=== PATIENT | female | born 1965 | race African-American/Black ===

== ENCOUNTER 2021-10-09 18:28 | Emergency (ER) | payer SELFPAY | END 2021-10-09 23:15 | disposition home or self-care (01) | LOC: CSHERS 18:28 | DX: R10.13 Epigastric pain (principal); R11.2 Nausea with vomiting, unspecified; K21.9 Gastro-esophageal reflux disease without esophagitis; E78.00 Pure hypercholesterolemia, unspecified | CPT/HCPCS: 76705 ==

== ENCOUNTER 2021-10-10 23:01 | Inpatient (IN) | payer SELFPAY ==
[2021-10-11 00:19] LABS: #Eosinphils 0.1 10x3/uL (0.0-0.5); #Monocytes 0.5 10x3/uL (0.0-1.1); #Neutrophils 3.8 10x3/uL (1.5-8.4); %Basophils 0.3 % (0.0-2.0); %Eosinophils 1.1 % (0.0-6.0); %Lymphocytes 29.5 % (18.0-47.0); %Monocytes 8.7 % (0.0-10.0); %Neutrophils 60.2 % (40.0-75.0); Hemoglobin 12.8 g/dL (12.0-15.5); Mean Corpuscular HGB CONC 34.7 g/dL (32.0-36.0); Mean Corpuscular Hemoglobin 29.8 pg (27.0-33.0); Mean Corpuscular Volume 85.8 fl (81.6-98.3); Mean Platelet Volume 9.1 fl (7.4-10.4); Platelet Count 357 10x3/uL (150-450); RBC Distribution Width 11.8 % (11.5-14.5); White Blood Cell (WBC) Count 6.2 10x3/uL (3.5-10.5)
[2021-10-11] MEDS ORDERED: Famotidine/PF 20 mg/2ml Vial ONE (00:24)
[2021-10-11] MEDS ORDERED: Pantoprazole 40 MG VIAL ONE ×2 (00:24→07:30)
[2021-10-11 00:28] LABS: ALT (SGPT) 8 U/L (8-55); AST (SGOT) 15 U/L (5-34); Albumin 3.9 g/dL (3.5-5.0); Alkaline Phosphatase 68 U/L (40-110); Anion Gap 14 mmol/L (10-20); BUN (Urea Nitrogen) 17 mg/dL (9.8-20.1); Bilirubin, Total 0.5 mg/dL (0.2-1.2); Calc. Creatinine Clearance 0 mL/min (70-130); Calcium 8.7 mg/dL (7.8-10.44); Carbon Dioxide 25 mmol/L (22-29); Chloride 98 mmol/L (98-107); Globulin 2.2 g/dL (2.4-3.5); Glucose 122 mg/dL (70-105); Lipase 35 U/L (8-78); Potassium 3.4 mmol/L (3.5-5.1); Protein, Total 6.1 g/dL (6.0-8.3); Sodium 134 mmol/L (136-145)
[2021-10-11] MEDS ORDERED: Mag-Al Plus 1200 MG/1200 MG/120 MG/30 ML UDCUP ONE (00:53)
[2021-10-11 01:50] LABS: Bilirubin Neg (Negative); Blood, Urine Negative (Negative); Clarity Clear (Clear); Glucose, Urine (Dipstick) >=1000 mg/dL (Negative); Ketone, Urine 5 mg/dL (Negative); Leukocyte 100 (Negative); Nitrite Negative (Negative); Protein, Urine (Dipstick) Negative (Neg-Trace); Urobilinogen Normal mg/dL (Less than 2)
[2021-10-11 01:57] LABS: Bacteria/HPF 1+ HPF (None Seen); RBC/HPF 0-3 HPF (0-3); Squamous Epithelial 0-3 HPF (0-3); WBC/HPF 0-3 HPF (0-3)
[2021-10-11] MEDS ORDERED: Nitroglycerin 0.4 MG TAB (25 Tab Bottle) SL PRN (04:03)
[2021-10-11] MEDS ORDERED: 1/2 NS w/KCL 20 mEq 1,000 ML IV SCH (04:30)
[2021-10-11] MEDS ORDERED: NS 0.9% w/ 20 MEQ KCL 1,000 ML ONE (04:37)
[2021-10-11] MEDS ORDERED: Aspirin Chewable 81 MG TAB PO SCH (04:45)
[2021-10-11] MEDS ORDERED: Aspirin 325 MG TAB ONE (04:48)
[2021-10-11] MEDS: Mag-Al 1200 mg/1200 mg/30 ML UDCUP PO SCH ×4 (04:55→23:44)
[2021-10-11] MEDS: NS 0.9% w/ 20 MEQ KCL 1,000 ML/1,000 ML BAG IV SCH ×2 (04:55→14:57)
[2021-10-11] MEDS: Nitroglycerin 2% Ointment 1 INCH/1 GM Packet TOP SCH ×3 (04:55→21:19)
[2021-10-11 05:15] LABS: #Eosinphils 0.1 10x3/uL (0.0-0.5); #Monocytes 0.6 10x3/uL (0.0-1.1); #Neutrophils 3.2 10x3/uL (1.5-8.4); %Basophils 0.5 % (0.0-2.0); %Eosinophils 1.5 % (0.0-6.0); %Lymphocytes 35.2 % (18.0-47.0); %Monocytes 9.3 % (0.0-10.0); %Neutrophils 53.3 % (40.0-75.0); Hemoglobin 12.8 g/dL (12.0-15.5); Mean Corpuscular HGB CONC 35.5 g/dL (32.0-36.0); Mean Corpuscular Volume 84.5 fl (81.6-98.3); Mean Platelet Volume 9.2 fl (7.4-10.4); Platelet Count 341 10x3/uL (150-450); Red Blood Cell (RBC) Count 4.27 10x6/uL (3.90-5.03)
[2021-10-11 05:31] LABS: Anion Gap 15 mmol/L (10-20); BUN (Urea Nitrogen) 16 mg/dL (9.8-20.1); Calc. Creatinine Clearance 0 mL/min (70-130); Carbon Dioxide 26 mmol/L (22-29); Cardiac Risk 6.9 (Less than 4.5); Chloride 97 mmol/L (98-107); Cholesterol 220 mg/dl (< 200 Desired); Glucose 127 mg/dL (70-105); HDL Cholesterol 32 mg/dL (>60 Neg Risk); LDL Cholesterol, Calculated 165 mg/dL; Magnesium 2.2 mg/dL (1.6-2.6); Potassium 3.5 mmol/L (3.5-5.1); Sodium 134 mmol/L (136-145); Triglycerides 114 mg/dL (Less than 150)
[2021-10-11 05:37] LABS: Troponin I Less than 0.010 ng/mL (< 0.028)
[2021-10-11] MEDS: Aspirin Chewable 81 MG TAB PO SCH (07:09)
[2021-10-11] MEDS ORDERED: metFORMIN 500 MG TAB ONE (07:29)
[2021-10-11] MEDS ORDERED: Lisinopril 10 MG TAB ONE (07:29)
[2021-10-11] MEDS ORDERED: Enoxaparin Sodium 40 MG/0.4 ML SYRINGE ONE (07:30)
[2021-10-11] MEDS ORDERED: Sucralfate 1 GM/10 ML UDCUP ONE (07:30)
[2021-10-11] MEDS: Sucralfate 1 GM TAB PO SCH ×2 (07:38→11:26)
[2021-10-11] MEDS: metFORMIN 500 MG TAB PO SCH ×2 (07:40→17:57)
[2021-10-11] MEDS: Pantoprazole 40 MG VIAL IVP SCH ×2 (07:41→21:20)
[2021-10-11 07:53] LABS: Troponin I Less than 0.010 ng/mL (< 0.028)
[2021-10-11] MEDS: Enoxaparin Sodium 40 MG/0.4 ML SYRINGE SC SCH (08:07)
[2021-10-11] MEDS: Lisinopril 10 MG TAB PO SCH (08:30)
[2021-10-11] MEDS: Empagliflozin 25 MG TAB PO SCH (08:33)
[2021-10-11] MEDS ORDERED: Iopamidol 300 61% 100 ML VIAL FS ONE (09:05)
[2021-10-11] MEDS ORDERED: Atorvastatin Calcium 10 MG TAB PO SCH (21:00)
[2021-10-12] MEDS: NS 0.9% w/ 20 MEQ KCL 1,000 ML/1,000 ML BAG IV SCH ×2 (01:47→12:36)
[2021-10-12] MEDS: Nitroglycerin 2% Ointment 1 INCH/1 GM Packet TOP SCH ×2 (05:03→12:36)
[2021-10-12] MEDS: Mag-Al 1200 mg/1200 mg/30 ML UDCUP PO SCH ×2 (06:37→12:36)
[2021-10-12] MEDS ORDERED: HYDROmorphone 0.5 MG/0.5 ML SYRINGE ONE (06:44)
[2021-10-12] MEDS ORDERED: PROPOFOL 40 ML ONE (06:57)
[2021-10-12] MEDS ORDERED: Lidocaine 2% MPF 10 ML AMP (For Epidural Use) ONE (06:57)
[2021-10-12] MEDS: Pantoprazole 40 MG VIAL IVP SCH (09:23)
[2021-10-12] MEDS: Aspirin Chewable 81 MG TAB PO SCH (09:24)
[2021-10-12] MEDS: Lisinopril 10 MG TAB PO SCH (09:24)
[2021-10-12] MEDS: metFORMIN 500 MG TAB PO SCH (09:24)
[2021-10-12] MEDS: Enoxaparin Sodium 40 MG/0.4 ML SYRINGE SC SCH (09:53)
[2021-10-12] MEDS: Empagliflozin 25 MG TAB PO SCH (09:53)
[2021-10-12 15:43] VITALS: BMI 16.6
[2021-10-12 17:22] VITALS: BP 157/73; TEMP 97.6
== END 2021-10-12 18:20 | disposition home or self-care (01) | DRG 384 ==
LOC: CSHERS 23:01 → INTOOBSV 10-11 03:10 → CSHERHOLD 10-11 03:10 → CSHIMCU 10-11 09:13 → OBSVTOIN 10-12 08:29 → CSHTELE 10-12 09:33
PROVIDERS: ADMIT Family Medicine; ATTEND Physician Assistant
PROC: 0DB68ZX Excision of Stomach, Via Natural or Artificial Opening Endoscopic, Diagnostic (ICD-10-PCS; principal; 2021-10-12)
DX: K25.9 Gastric ulcer, unspecified as acute or chronic, without hemorrhage or perforation (principal); K26.9 Duodenal ulcer, unspecified as acute or chronic, without hemorrhage or perforation; N83.202 Unspecified ovarian cyst, left side; J45.909 Unspecified asthma, uncomplicated; E87.6 Hypokalemia; I70.0 Atherosclerosis of aorta; R07.9 Chest pain, unspecified; K86.89 Other specified diseases of pancreas; E78.5 Hyperlipidemia, unspecified; I10 Essential (primary) hypertension; E11.51 Type 2 diabetes mellitus with diabetic peripheral angiopathy without gangrene; K21.9 Gastro-esophageal reflux disease without esophagitis; E78.00 Pure hypercholesterolemia, unspecified; F32.A Depression, unspecified; F17.210 Nicotine dependence, cigarettes, uncomplicated; E11.43 Type 2 diabetes mellitus with diabetic autonomic (poly)neuropathy; K31.84 Gastroparesis; Z20.822 Contact with and (suspected) exposure to COVID-19; Z88.0 Allergy status to penicillin; Z71.6 Tobacco abuse counseling; Z88.2 Allergy status to sulfonamides; Z98.891 History of uterine scar from previous surgery; Z79.899 Other long term (current) drug therapy; Z79.84 Long term (current) use of oral hypoglycemic drugs; Z83.3 Family history of diabetes mellitus; Z82.49 Family history of ischemic heart disease and other diseases of the circulatory system; Z82.5 Family history of asthma and other chronic lower respiratory diseases
CPT/HCPCS: 36415; 36416; 71045; 71275; 74174; 78227; 80048; 80053; 80061; 81003; 81015; 83690; 83735; 84484; 85025; 88305; 88342; 93005; 93010; 93306; 96372; 96374; 96375; 96376; A9537; C9113; G0378; J1170; J1650; J2704; J3480; Q9967; S0028; U0003; U0005